=== PATIENT | female | born 1990 | race Caucasian/White ===

== ENCOUNTER 2016-11-14 20:54 | Emergency (ER) | payer MEDICAID ==
[2016-11-14] MEDS ORDERED: Triamcinolone Acetonide 40 MG/ML 1 ML MDV INJECT ONE (21:31)
[2016-11-14] MEDS ORDERED: Take Home: predniSONE 20 MG, 2 Tab Pack PO ONE ×2 (21:32→21:56)
--- NOTE | 2016-11-18 08:10 | ER ---
Date of Service: 11/14/2016 SUBJECTIVE: Syd presents to the emergency room with complaints of hives that started this morning. She states that the hives are located primarily in the arms, torso, face, legs, and neck. The patient states that the urticaria is extremely pruritic. She states that she is not experiencing any respiratory problems or shortness of breath. She has also noticed some swelling to her hands and feet. PAST MEDICAL HISTORY: She denies. MEDICATIONS: 1. Multivitamin. 2. Cranberry. ALLERGIES: Bactrim. REVIEW OF SYSTEMS: General: No fever or chills. HEENT: No sore throat, rhinorrhea, or congestion. Respiratory: No shortness of breath. Cardiac: She denies any substernal chest pain. No jaw, arm, neck, or back pain. Gastrointestinal: No nausea, vomiting, or diarrhea. No melena, hematochezia, or hematemesis. Genitourinary: She denies any dysuria. Dermatologic: Please see history of present illness. PHYSICAL EXAMINATION: General: This is a 26-year-old female, in no acute distress. Vital Signs: Blood pressure is 128/78, heart rate is 67, temperature is 36.6, respiratory rate is 16, and O2 saturation is 100%. Skin: Warm, pink, and dry. She does have urticaria to her torso and extremities as well as her face and neck. Mouth: Oral mucosa is moist. No swelling to her hypopharynx. Neck: Supple. No masses. There is no lymphadenopathy. Lungs: Clear to auscultation. Heart: Regular rate and rhythm. Abdomen: Soft and nontender. There is no hepatosplenomegaly or masses noted. EMERGENCY ROOM COURSE: The patient was given triamcinolone 40 mg IM. She had also taken Benadryl prior to coming to the emergency room. She remained stable in my care in the emergency room. ASSESSMENT: Urticaria of unknown etiology. PLAN: The patient was started on Bactrim 40 mg once daily for five days. We will have her follow up with her primary care provider in the next five to seven days to ensure resolution of her symptoms. She is to return to the emergency room if her symptoms are not improving or if she develops any shortness of breath, throat tightness, or other worrisome signs or symptoms. MWK: 11/18/2016 04:45:03 MODL: 11/18/2016 05:24:11 /[id number]
== END 2016-11-14 22:01 | disposition home or self-care (01) ==
LOC: VM.ED 20:54
DX: L50.9 Urticaria, unspecified (principal); Z88.1 Allergy status to other antibiotic agents
CPT/HCPCS: 96372; 99283; A9270; J3301